=== PATIENT | female | born 1945 | race Caucasian/White ===

== ENCOUNTER → 2017-10-08 | Outpatient (CLI) | payer MEDICARE, OTHER ==
[2017-10-08 13:13] LABS: Blood Urea Nitrogen 11 mg/dL (7-17)
--- NOTE | 2017-10-08 15:18 | CT ---
EXAMINATION TYPE: CT chest w con DATE OF EXAM: 10/08/2017 COMPARISON: NONE HISTORY: Mild chronic obstructive pulmonary disease CT DLP: 114.40 mGycm, Automated exposure control for dose reduction was used. CONTRAST: Performed injected with 100 mL of Omnipaque 300. TECHNIQUE: Axial images were obtained at 5 mm thick sections. Reconstructed images are reviewed on [employer] computer in the coronal plane. FINDINGS: Portion of the thyroid visualized is normal. No suspicious lung nodules or focal infiltrates are present. Left hilar surgical clips are present. S ome mild emphysematous changes present within the right lung. There may be some pulmonary fibrosis or minimal subsegmental atelectasis posterior peripheral left lung No enlarged mediastinal or hilar adenopathy is evident. The ascending aorta diameter at the level o f the main pulmonary artery is 3.0 cm. The main pulmonary artery diameter at the bifurcation is 2.[address] sections are obtained through the upper abdomen. Abdomen is essentially unremarkable. IMPRESSIONS: 1. Very mild COPD. 2. Postsurgical changes. No suspicious masses are evident.
== END | disposition home or self-care (01) ==
LOC: RADCTMAIN 12:21
PROVIDERS: ATTEND Internal Medicine Critical Care Medicine
DX: J44.9 Chronic obstructive pulmonary disease, unspecified (principal); Z98.890 Other specified postprocedural states
CPT/HCPCS: 71260; 82565; 84520

== ENCOUNTER → 2020-08-10 | Day surgery (SDC) | payer MEDICARE, OTHER ==
[2020-08-09 13:33] VITALS: BMI 15.4
[~2020-08-10] MED LIST: ALBUTEROL NEB (CONC) 2.5 MG/0.5 ML INHALATION ONE; GLYCOPYRROLATE 0.2 MG/ML 2 ML VIAL ONE; LACTATED RINGERS 1,000 ML IV SCH; LIDOCAINE 1% (10MG/ML) FOR IV START INTRADERMA ONE; LIDOCAINE 1% INJ 10MG/ML (20 ML MDV) ONE; LIDOCAINE 2% (PF) 20 MG/ML 5 ML VIAL INHALATION ONE; LIDOCAINE VISCOUS 300 MG/15 ML CUP MUCOUS MEM ONE; MIDAZOLAM 2 MG/2 ML VIAL ONE; NEOSTIGMINE 1 MG/ML 10 ML VIAL ONE; PROPOFOL 10 MG/ML 20 ML VIAL IV ONE; ROCURONIUM 10 MG/ML (10 ML VIAL) IV ONE; SODIUM CHLORIDE 0.9% 1,000 ML IV SCH; SUCCINYLCHOLINE CHLORIDE 100 MG/5 ML SYR IV ONE; fentaNYL (PF) 50 MCG/ML 2 ML AMP ONE
--- NOTE | 2020-08-10 12:20 | CT ---
EXAMINATION TYPE: CT Chest manuelito Wilson Protocol DATE OF EXAM: 08/10/2020 COMPARISON: PET/CT 07/31/2020 HISTORY: 75-year-old female Bronchial navigation. TECHNIQUE: Contiguous axial scanning of the chest without IV contrast. Inspiratory and expiratory vie ws were obtained for endobronchial navigational purposes. Coronal and sagittal reconstructions. CT DLP: 598 mGycm Automated exposure control for dose reduction was used. FINDINGS: Heart normal size without pericardial effusion. Three-vessel coronary artery calcifications are prese nt. Moderate atherosclerotic arch calcifications with conventional arch vessel branching anatomy. Scattered mediastinal lymph nodes are present, largest in the precarinal space measuring 7 mm. Subcar inal lymph node is borderline enlarged at 1.4 cm. Surgical clips at the left hilum with evidence of previous left upper lobectomy. Left perihilar soft tissue thickening with multiple left lower lung pulmonary nodules measuring up to 1.7 cm. Interstitial changes and centrilobular nodularity is present. Some tree-in-bud opacity in the periphery of the right mid lung also redemonstrated. Moderate emphyse matous change. No pleural effusion. Mild diffuse low-density thickening left adrenal gland. Bones: No osseous destructive process. IMPRESSION: 1. PRIOR LEFT UPPER LOBECTOMY. THERE IS SOFT TISSUE PROMINENCE AT THE LEFT HILUM WITH MULTIPLE NODULE S LEFT MID AND LOWER LUNG MEASURING UP TO 1.7 CM. BORDERLINE SIZE 1.4 CM SUBCARINAL LYMPH NODE ALSO N OTED. 2. THERE MAY BE A SUPERIMPOSED INFECTIOUS PROCESS GIVEN THE RETICULONODULAR INFILTRATE IN THE LEFT IN D AND LOWER LUNG AND ALSO THE TREE-IN-BUD OPACITIES IN THE RIGHT MIDLUNG. 3. COPD WITH MODERATE EMPHYSEMA. OVERALL SIMILAR FINDINGS TO THE RECENT 07/31/2020 OUTSIDE PET/CT.
--- NOTE | 2020-08-10 14:02 | P.PCN ---
Date of Procedure: 08/10/20 Preoperative Diagnosis: LLL multiple nodules Postoperative Diagnosis: LLL multiple nodules Procedure(s) Performed: Flexible bronchoscopy, navigational bronchoscopy, chest bronchial biopsy of the left lower lobe Anesthesia: RHETTA Surgeon: Sylwia Abreu Estimated Blood Loss (ml): 0 Pathology: other Condition: stable Disposition: same day Operative Findings: This medication bronchoscopy was done in the endoscopy suite. The patient has a previous left upper lobe resection and the patient had a follow-up CAT scan that showed multiple noted or lesions in the left lower lobe. Based on that, the navigational bronchoscopy was recommended. The patient underwent a computed tomography scan using the [employer] protocol and the computed tomography scan was no evidence of system where the left lower lobe nodules were identified and mapped. All of this information was uploaded into a USB and then brought into the [employer] tower. This patient was brought in to the endoscopy suite. The patient was intubated by the usual fashion and intubation process was done by Tami magallanes. The patient was intubated by #8 endotracheal tube. Following that, the flexible bronchoscope was introduced through the orotracheal tube and was advanced and lower airway. A quick airway inspection was done. Information of the right- sided included the right mainstem bronchus, right upper lobe bronchus, right middle lobe bronchus, right lower lobe bronchus and the various segments and subsegments. All of these airways were patent and within normal limits. Then the bronchoscope was moved to the left. Left mainstem was patent. The stump left of the left upper lobe resection area was found to be intact and healthy. Following that the bronchoscope was moved to the left. The various segments of the left lower lobe were occupied with mucus. The airway suctioning was done and following that on the navigational bronchoscopy guidance the bronchoscope was directed to the left lower lobe and transbronchial biopsies of the left lower lobe nodules were done with good accuracy. Multiple biopsies were obtained. No bleeding was encountered. Therapeutic airway suctioning was done. Bronchoscope was removed and the procedure was terminated. The patient will be extubated and following that the patient will be transferred recovery in stable condition. The patient will see back in the office to discuss the results of the transbronchial biopsy.
[2020-08-10 14:18] VITALS: TEMP 97.3
[2020-08-10 14:53] VITALS: RESP 17
[2020-08-10 15:07] VITALS: BP 119/62; PULSE 62
--- NOTE | 2020-08-10 15:07 | XR ---
EXAMINATION TYPE: XR chest 1V DATE OF EXAM: 08/10/2020 COMPARISON: CT chest today. HISTORY: 75 year-old female post biopsy TECHNIQUE: Single frontal view of the chest is obtained. FINDINGS: Status post left upper lobectomy. Emphysematous change left greater than right with corresponding vol ume loss. No appreciable pneumothorax. Patchy densities within the left mid and lower lung correspond to the re ticulonodular opacities on CT. Underlying nodularity subtlely apparent projecting behind the heart. Some subtle infiltrate periphery of the right midlung redemonstrated as on CT. IMPRESSION: 1. Reticulonodular infiltrate left mid and lower lung. Underlying nodularity more apparent on CT. No appreciable pneumothorax. 2. Status post left upper lobectomy with left-sided volume loss and extensive emphysematous change le ft upper lobe. 3. Subtle peripheral right midlung infiltrate as seen on CT.
== END ==
LOC: ORWHC2ENDO 10:48
PROVIDERS: ATTEND Internal Medicine Critical Care Medicine
DX: I73.9 Peripheral vascular disease, unspecified (principal); F17.210 Nicotine dependence, cigarettes, uncomplicated; K21.9 Gastro-esophageal reflux disease without esophagitis; I25.10 Atherosclerotic heart disease of native coronary artery without angina pectoris; I10 Essential (primary) hypertension; K80.20 Calculus of gallbladder without cholecystitis without obstruction; Z90.49 Acquired absence of other specified parts of digestive tract; J84.10 Pulmonary fibrosis, unspecified; J44.9 Chronic obstructive pulmonary disease, unspecified; Z85.038 Personal history of other malignant neoplasm of large intestine; Z98.51 Tubal ligation status; Z95.5 Presence of coronary angioplasty implant and graft; Z98.890 Other specified postprocedural states; I25.2 Old myocardial infarction; E78.5 Hyperlipidemia, unspecified; F32.9 Major depressive disorder, single episode, unspecified; Z98.42 Cataract extraction status, left eye; Z98.41 Cataract extraction status, right eye; Z80.1 Family history of malignant neoplasm of trachea, bronchus and lung; Z80.0 Family history of malignant neoplasm of digestive organs; Z82.49 Family history of ischemic heart disease and other diseases of the circulatory system; Z79.82 Long term (current) use of aspirin; Z79.899 Other long term (current) drug therapy
CPT/HCPCS: 88305; 88342; 88341; 71045; 71250; 31625; 31627; J2250; J2710; J2001; J3010; J0330; J2704

== ENCOUNTER 2021-05-10 09:51 | Day surgery (SDC) | payer MEDICARE, OTHER ==
[2021-05-09 11:10] VITALS: BMI 15.4
[~2021-05-10 09:51] MED LIST changes: -GLYCOPYRROLATE 0.2 MG/ML 2 ML VIAL ONE; -LIDOCAINE 1% (10MG/ML) FOR IV START INTRADERMA ONE; -LIDOCAINE 1% INJ 10MG/ML (20 ML MDV) ONE; -MIDAZOLAM 2 MG/2 ML VIAL ONE; -NEOSTIGMINE 1 MG/ML 10 ML VIAL ONE; -PROPOFOL 10 MG/ML 20 ML VIAL IV ONE; -ROCURONIUM 10 MG/ML (10 ML VIAL) IV ONE; -SUCCINYLCHOLINE CHLORIDE 100 MG/5 ML SYR IV ONE; -fentaNYL (PF) 50 MCG/ML 2 ML AMP ONE
[2021-05-10] MEDS ORDERED: LIDOCAINE 1% INJ 10MG/ML (20 ML MDV) ONE (12:13)
[2021-05-10] MEDS ORDERED: GLYCOPYRROLATE 0.2 MG/ML 2 ML VIAL ONE (12:13)
[2021-05-10] MEDS ORDERED: NEOSTIGMINE 1 MG/ML 10 ML VIAL ONE (12:13)
[2021-05-10] MEDS ORDERED: ROCURONIUM 10 MG/ML (5 ML VIAL) IV ONE (12:13)
[2021-05-10] MEDS ORDERED: SUCCINYLCHOLINE CHLORIDE 100 MG/5 ML SYR IV ONE (12:13)
[2021-05-10] MEDS ORDERED: PROPOFOL 10 MG/ML 20 ML VIAL IV ONE (12:13)
[2021-05-10] MEDS ORDERED: PHENYLEPHRINE-0.9% NACL SYG 1,000 MCG/10 ML SYRINGE ONE (12:13)
--- NOTE | 2021-05-10 13:42 | P.PCN ---
Date of Procedure: 05/10/21 Operative Findings: Date of Procedure: Preoperative Diagnosis: Left lower lobe nodular lesion/infiltrates , mediastinal lymphadenopathy Postoperative Diagnosis: Left lower lobe nodular lesion/infiltrates , mediastinal lymphadenopathy The stump left of the left upper lobe resection area was found to be intact and healthy. Following that the bronchoscope was moved to the left. The various segments of the left lower lobe were occupied with mucus. Various segments of the left lower lobe were quite atelectatic and filled with creamy white mucous. Procedure(s) Performed: 1 Navigational bronchoscopy 2 transbronchial brushing of the Left lower lobe 3 bronchial lavage of the left lower lobe 4 EBUS 5 EBUS guided transbronchial needle aspirate of the station 7 subcarinal lymph node Anesthesia: MERI Surgeon: Sylwia Abreu Pole Maker #1:Cassi Robertson Estimated Blood Loss (ml): 0 Pathology: other Condition: stable Disposition: same day Operative Findings: This procedure was done under general anesthesia. There is a navigational bronchoscopy. The patient initially had a CAT scan of the chest utilizing the [employer] protocol. The images were uploaded into the software and the left upper lobe mass was identified and appropriate calibrations and mapping was done. Following that, all of this information was uploaded into the [employer] navigational tower. The patient was brought into the endoscopy suite. The patient was intubated by CYANIDE FURNACE OPERATOR. The patient had a 8 ET tube placed and she was secured in place. Following that, flexible bronchoscope was introduced through the orotracheal tube and an airway inspection was done. The visualized airways included the mid and the distal trachea, bilateral mainstem bronchi, right upper lobe bronchus, bronchus intermedius, right middle lobe and right lower lobe bronchus and the various 10 segments on the right. Bronchoscope was moved to the left and the visualized airways included the left mainstem bronchus, Left mainstem was patent. The stump to the left upper lobe resection area was found to be intact and healthy. Following that the bronchoscope was moved to the left. The various segments of the left lower lobe were occupied with mucus. Therapeutic airway suctioning was done. Mucus worse removed without any major difficulties. Following that, the bronchioloalveolar lavage of the left lower lobe was done. A total of 80 mL of fluid was infused in approximately 25. Was aspirated. Following that, transbronchial transbronchial brushings of the the nodular lesions of the left lung was done using navigational guidance. Aspirate was nonbloody. No complications. I did not do any transbronchial biopsy due to concern of pneumothorax Subsequent to that, the endobronchial ultrasound bronchoscopy was introduced.The EBUS was used and the lymph nodes were examined. Direct measurement of the mediastinal lymph nodes revealed a 5 x 12 mm station 4R lymph node, 14 x 22 mm station 7 lymph node. And 13 x 14 mm 10L station lymph node.. I performed transbronchial needle aspirate of station 7 and a total of 3 passes were taken without major bleeding . No major bleeding and the scope was removed and taken out in total the patient was send to the floor in stable condition. Patient was extubated and transferred to recovery in stable condition. Chest x-rays to follow to rule out any complications or pneumothorax.
[2021-05-10 13:53] VITALS: TEMP 97.5
--- NOTE | 2021-05-10 14:19 | XR ---
EXAMINATION TYPE: XR chest 1V DATE OF EXAM: 05/10/2021 HISTORY: post bronch COMPARISON: 08/10/2020 TECHNIQUE: Single view of the chest is submitted. FINDINGS: No evidence for pneumothorax. Cystic changes left upper lobe and volume loss persists. Mildly increas ing left lower lobe patchy density. The heart is stable. Hilar and mediastinal structures are within normal limits. Degenerative changes are seen of the dorsal spine. IMPRESSION: 1. No evidence for pneumothorax. Cystic changes left upper lobe and volume loss persists. Mildly inc reasing left lower lobe patchy density.
[2021-05-10 14:25] VITALS: RESP 18
--- NOTE | 2021-05-10 14:32 | CT ---
EXAMINATION TYPE: CT Chest manuelito Wilson Protocol DATE OF EXAM: 05/10/2021 COMPARISON: 08/10/2020 HISTORY: Pulmonary nodules. Mass. Bronchial navigation CT DLP: 543 mGycm Automated exposure control for dose reduction was used. FINDINGS: Heart normal size without pericardial effusion. Three-vessel coronary artery calcifications are prese nt. Moderate atherosclerotic arch calcifications with conventional arch vessel branching anatomy. Scattered mediastinal lymph nodes are present, largest in the precarinal space measuring 7 mm. Subcar inal lymph node is borderline enlarged at 1.4 cm. Surgical clips at the left hilum with evidence of previous left upper lobectomy. Left perihilar soft tissue thickening noted on the prior exam is markedly improved. Interstitial changes and centrilobula r nodularity is present. Emphysematous changes are stable and there is a 1 cm nodule in the right upp er peribronchial wall thickening greater on the left noted similar to prior exam. Correlate for bronc hiectasis. Some tree-in-bud opacity in the periphery of the right mid lung also redemonstrated. Moderate emphyse matous change. No pleural effusion. Mild diffuse low-density thickening left adrenal gland. Atheroscl erotic change of the aorta. Coronary artery calcification noted in the heart size is mildly prominent . Bones: No osseous destructive process. IMPRESSION: 1. Prior left upper lobectomy. Soft tissue prominence of the left hilum is demonstrated marked improv ement. Nodular densities involving the lung bases are most compatible with dilated mucus filled bronc hioles. Correlate for bronchiectasis. Extensive peribronchial wall thickening on the left. 2. Nodular density in the right upper lobe measures 1 cm appears more prominent on today's exam could be correlated with PET scan. 3. Diffuse emphysematous changes.
[2021-05-10 14:57] VITALS: BP 96/60; PULSE 83
== END 2021-05-10 15:02 | disposition home or self-care (01) ==
LOC: ORWHC2ENDO 09:51
PROVIDERS: ATTEND Internal Medicine Critical Care Medicine
DX: R59.0 Localized enlarged lymph nodes (principal); R91.8 Other nonspecific abnormal finding of lung field; Z90.2 Acquired absence of lung [part of]; J98.4 Other disorders of lung
CPT/HCPCS: 88104; 88108; 88305; 71045; 71250; 31623; 31624; 31635; 31652; J2710; J2001; J2370; J0330; J2704

== ENCOUNTER → 2022-05-27 | Outpatient (CLI) | payer MEDICARE, OTHER ==
--- NOTE | 2022-05-27 10:11 | CT ---
EXAMINATION TYPE: CT chest wo con DATE OF EXAM: 05/27/2022 COMPARISON: 12/02/2021, 05/10/2021, 02/06/2021 HISTORY: 76-year-old female C34.12, Malignant, neoplasm of Lt upper lobe TECHNIQUE: Contiguous axial scanning of the chest without IV contrast. Coronal and sagittal reconstru ctions performed. CT DLP: 112.60 mGycm Automated exposure control for dose reduction was used. FINDINGS: The heart is normal size with trace pericardial fluid measuring 4 mm thick. Three-vessel coronary art darlene calcifications are present and are a marker for coronary artery disease. Moderate atherosclerotic arch calcifications within the charge was a branching anatomy. Precarinal lymph node unchanged at 1 cm. Subcarinal lymph node unchanged at 1 cm thick. By noncontrast CT, no increasing thoracic lymphadenopathy is seen. Patient is status post left upper lobectomy. Associated volume loss in the left hemithorax. Interstit ial and patchy consolidation left upper to midlung is unchanged. Bronchiectasis with some layering ma terial in the dilated bronchi of the lower lungs redemonstrated. Also redemonstrated is a 5 mm pulmon emma nodule periphery of the left lower lung, probably endobronchial mucous plugging. No new or enlarg ing mass is seen. Background moderate emphysematous change. Fine interstitial changes at the periphery of the right bas e. Visualized upper abdomen shows similar low-density diffuse thickening left adrenal gland. An partiall y visualized ectasia infrarenal abdominal aorta up to at least 2.6 cm. Again, only partially visualiz ed. Small spleen noted. Unchanged benign 7 mm anterior left liver lobe cyst. Bones: No osseous destructive process. IMPRESSION: 1 RELATIVELY UNCHANGED EXAM STATUS POST LEFT UPPER LOBECTOMY. THERE IS BACKGROUND MODERATE EMPHYSEMA, PATCHY AND INTERSTITIAL OPACITIES LEFT UPPER TO MIDLUNG (EITHER POSTTREATMENT CHANGE OR INFECTIOUS/I NFLAMMATORY ETIOLOGY, RELATIVELY SIMILAR TO PRIOR EXAM), AND LEFT LOWER LUNG BRONCHIECTASIS. DEPENDEN T FLUID AND SECRETIONS REMAIN WITHIN SOME OF THE DILATED BRONCHI. 2. A 5 MM LEFT BASILAR PULMONARY NODULE REMAINS UNCHANGED FROM 12/02/2021, SUSPECT RESIDUAL MUCOUS PLUG GING RATHER THAN A TRUE PULMONARY NODULE. ATTENTION ON FOLLOW-UP. 3. NO NEW MASS OR LYMPHADENOPATHY SEEN.
== END | disposition home or self-care (01) ==
LOC: RADCTMAIN 09:17
PROVIDERS: ATTEND Internal Medicine Hematology & Oncology
DX: C34.12 Malignant neoplasm of upper lobe, left bronchus or lung (principal)
CPT/HCPCS: 71250

== ENCOUNTER → 2022-12-16 | Outpatient (CLI) | payer MEDICARE, OTHER ==
--- NOTE | 2022-12-16 17:08 | CT ---
EXAMINATION TYPE: CT chest wo con DATE OF EXAM: 12/16/2022 COMPARISON: 05/27/2022 HISTORY: lung ca CT DLP: 261 mGycm, Automated exposure control for dose reduction was used. CONTRAST: Performed injected with 0 mL of Isovue 300. TECHNIQUE: Axial images were obtained at 5 mm thick sections. Reconstructed images are reviewed on [employer] computer in the coronal plane. FINDINGS: Portion of the thyroid visualized is normal. Pulmonary fibrosis and bronchiectasis is present through the left lung. Some scarring may be at the l eft apex, present previously aerated mild emphysematous changes are within the right lung. No signifi cant interval change to suggest recurrent lung cancer identified. The small pulmonary nodule the right base is 0.4 cm, with no interval growth. This appears to be rela mary anne to basilar scarring. Continued monitoring is recommended. There is a 1.0 cm pretracheal lymph node. Additional enlarged lymphadenopathy is not evident. Jay ry artery calcification is noted. The ascending aorta diameter at the level of the main pulmonary art darlene is 3.8 cm. The main pulmonary artery diameter at the bifurcation is 2.[address] sections are obtained through the upper abdomen. Tiny hepatic cyst in left lobe liver is p resent. IMPRESSIONS: 1. Stable left lung changes. Increasing or recurrent lung cancer not identified.
== END | disposition home or self-care (01) ==
LOC: RADCTMAIN 16:11
PROVIDERS: ATTEND Internal Medicine Hematology & Oncology
DX: C34.12 Malignant neoplasm of upper lobe, left bronchus or lung (principal); J44.1 Chronic obstructive pulmonary disease with (acute) exacerbation; I10 Essential (primary) hypertension; F41.9 Anxiety disorder, unspecified
CPT/HCPCS: 71250

== ENCOUNTER → 2023-06-30 | Outpatient (CLI) | payer MEDICARE, OTHER ==
[2023-06-30 12:57] LABS: African American GFR (CKD) 83 (>60 ml/min/1.73 sqM); Blood Urea Nitrogen 16 mg/dL (7-17); Non-African American GFR(CKD) 72 (>60 ml/min/1.73 sqM)
--- NOTE | 2023-06-30 22:30 | CT ---
EXAMINATION TYPE: CT chest w con DATE OF EXAM: 06/30/2023 COMPARISON: 12/16/2022 and 12/02/2021 HISTORY: 78-year-old female C34.12, obs for mets, hx of lung ca. TECHNIQUE: Contiguous axial scanning of the chest after the administration of 100 mL of Isovue 300. Coronal/sagittal reconstructions performed. CT DLP: 111.60mGycm. Automatic exposure control utilized for a dose reduction. FINDINGS: Multinodular thyroid gland is redemonstrated. Heart normal size without pericardial effusion. RCA and circumflex coronary calcifications noted. Mild to moderate atherosclerotic arch calcifications within the chart. Branching anatomy. Large caliber to the main right pulmonary artery 2.8 cm suggests underlying pulmonary artery hyperten pantera. Enlarged 1.6 cm right hilar lymph node and small right-sided bronchial lymph nodes remain unchanged b ack to 12/02/2021. No increasing thoracic lymphadenopathy is seen. Postsurgical change of left lobectomy. Similar patchy pleural-parenchymal opacities and interstitial changes throughout the upper and mid left lung as well as left lower lung bronchiectasis with some re tained fluid now present. Unchanged 4 mm lateral left basilar pulmonary nodule, axial image 40. Associated volume loss in the l eft hemithorax. Background moderate emphysema. * Possible underlying infrarenal abdominal aortic ectasia versus aneurysm partially visualized. Octavio vinayak estimated up to 2.9 cm on the last axial image 67. Recommend screening abdominal aortic ultrasoun d to determine if CT of the abdomen is needed. * Unchanged nodular thickening of the left adrenal gland. * 7 mm anterior left liver lobe cyst. * 9 mm cortical cyst left kidney. 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 Bones: No osseous destructive process. IMPRESSION: 1. COPD with moderate emphysema and postsurgical change of left lobectomy with associated volume loss . 2. Unchanged pleural parenchymal and interstitial changes throughout the left upper and midlung which could be chronic scarring or posttreatment change. Left lower lung bronchiectasis is also unchanged. However, some layering secretions within the dilated bronchi are new from 12/16/2022. Correlate to ex clude superimposed infection. 3. A 4 mm left basilar pulmonary nodule remains unchanged. Prominent right hilar lymph node at 1.6 cm is unchanged. No evidence for disease progression/recurrence. 4. Possible underlying infrarenal AAA or ectasia. Recommend screening abdominal aortic ultrasound as an initial assessment.
== END | disposition home or self-care (01) ==
LOC: RADCTMAIN 12:23
PROVIDERS: ATTEND Internal Medicine Hematology & Oncology
DX: C34.12 Malignant neoplasm of upper lobe, left bronchus or lung (principal); I10 Essential (primary) hypertension; F41.9 Anxiety disorder, unspecified; J47.9 Bronchiectasis, uncomplicated; J43.9 Emphysema, unspecified; R91.1 Solitary pulmonary nodule; J44.1 Chronic obstructive pulmonary disease with (acute) exacerbation; Z71.3 Dietary counseling and surveillance
CPT/HCPCS: 82565; 84520; 71260; 36415; Q9967

== ENCOUNTER → 2024-02-01 | Outpatient (CLI) | payer MEDICARE, OTHER ==
[2024-02-01 12:55] LABS: African American GFR (CKD) 89 (>60 ml/min/1.73 sqM); Blood Urea Nitrogen 18 mg/dL (7-17); Non-African American GFR(CKD) 77 (>60 ml/min/1.73 sqM)
--- NOTE | 2024-02-01 14:49 | CT ---
EXAMINATION TYPE: CT chest w con CT DLP: 353 mGycm, Automated exposure control for dose reduction was used. DATE OF EXAM: 02/01/2024 1:17 PM COMPARISON: Chest CT from 06/30/2020. CLINICAL INDICATION:Female, 78 years old with history of C34.12 LUNG CANCER; PHH, f/u lung cancer, SO B, hx of partial left lobectomy TECHNIQUE: Multiple axial images were obtained through the chest. Sagittal and coronal reformats were created for review. Contrast used:100 mL of Isovue 300 with IV Contrast (None if empty) Oral contrast used: (None if empty) Findings: Heart normal size without pericardial effusion. RCA and circumflex coronary calcifications are reiden tified. Mild to moderate atherosclerotic arch calcifications within the aortic arch. Branching anatom y. Large caliber to the main right pulmonary artery 2.8 cm suggests underlying pulmonary artery hyper tension, or, perhaps, sequela of enlarged right hilar lymph node. Enlarged 1.6 cm right hilar lymph n ode and small right-sided bronchial lymph nodes remain unchanged back to 12/02/2021. No increasing thor acic lymphadenopathy is seen. Bronchiectasis with fluid layering in the rhonchi in the left lower lo be. For example, see images 29-33, series 4 Postsurgical change of left lobectomy. Similar patchy pleural-parenchymal opacities and interstitial changes throughout the upper and mid left lung as well as left lower lung bronchiectasis with some re tained fluid now present. Unchanged 4 mm lateral left basilar pulmonary nodule, axial image 38, serie s 4 axial. Associated volume loss in the left hemithorax. Background moderate emphysema. Unchanged nodular thickening of the left adrenal gland. 7 mm anterior left liver lobe cyst. A 9 mm cortical cyst left kidney appears simple and therefore requires no specific follow-up. Spleen not seen, probably surgically absent. Bones: No osseous destructive process. IMPRESSION: 1. COPD with moderate emphysema and postsurgical change of left lobectomy with associated volume loss . 2. Unchanged pleural parenchymal and interstitial changes throughout the left upper and midlung which could be chronic scarring or posttreatment change. Left lower lung bronchiectasis is also unchanged. However, some layering secretions within the dilated bronchi which were noted on 06/30/2023 have unc hanged appearance on today's study. Correlate to exclude superimposed infection. 3. A 4 mm left basilar pulmonary nodule remains unchanged. Prominent right hilar lymph node at 1.6 cm is unchanged. No evidence for disease progression/recurrence. 4. Unchanged nodular thickening of left adrenal gland
== END | disposition home or self-care (01) ==
LOC: RADCTMAIN 12:10
PROVIDERS: ATTEND Internal Medicine Hematology & Oncology
DX: C34.12 Malignant neoplasm of upper lobe, left bronchus or lung (principal); J44.9 Chronic obstructive pulmonary disease, unspecified; J43.9 Emphysema, unspecified; J47.9 Bronchiectasis, uncomplicated; R91.1 Solitary pulmonary nodule; D35.02 Benign neoplasm of left adrenal gland
CPT/HCPCS: 82565; 84520; 71260; 36415; Q9967